=== PATIENT | male | born 1980 | race Caucasian/White ===

== ENCOUNTER 2023-04-20 12:34 | Emergency (ER) | payer SELFPAY ==
[~2023-04-20] VITALS: Ht 167 cm; Wt 70.3 kg
[~2023-04-20 12:34] MED LIST: CYCL10TA9 PO; HYDR-3816 PO; HYDR1TAB PO
[2023-04-20 12:58] LABS: BASOPHILS # (AUTO) 0.1 10^3/uL (0.0-0.1); BASOPHILS % (AUTO) 1 % (0-10); EOSINOPHILS % (AUTO) 1 % (0-10); HEMATOCRIT 44 % (40-54); LYMPHOCYTES # (AUTO) 2.7 10^3/uL (1.0-4.0); LYMPHOCYTES % (AUTO) 32 % (12-44); MEAN CORPUSCULAR HEMOGLOBIN 31 pg (25-34); MEAN CORPUSCULAR HGB CONC 37 g/dL (32-36); MEAN CORPUSCULAR VOLUME 86 fL (80-99); MONOCYTES # (AUTO) 0.8 10^3/uL (0.0-1.0); MONOCYTES % (AUTO) 9 % (0-12); NEUTROPHILS % (AUTO) 58 % (42-75); PLATELET COUNT 398 10^3/uL (130-400); WHITE BLOOD COUNT 8.7 10^3/uL (4.3-11.0)
[2023-04-20 13:05] LABS: ALBUMIN 4.6 GM/DL (3.2-4.5); CHLORIDE 104 MMOL/L (98-107); POTASSIUM 3.2 MMOL/L (3.6-5.0); SODIUM 139 MMOL/L (135-145)
[2023-04-20 13:07] LABS: CALCIUM 9.6 MG/DL (8.5-10.1)
[2023-04-20 13:08] LABS: GLUCOSE 106 MG/DL (70-105); TOTAL PROTEIN 7.9 GM/DL (6.4-8.2)
[2023-04-20 13:09] LABS: CARBON DIOXIDE 21 MMOL/L (21-32)
[2023-04-20 13:10] LABS: BILIRUBIN,TOTAL 1.5 MG/DL (0.1-1.0)
[2023-04-20 13:11] LABS: ALKALINE PHOSPHATASE 56 U/L (40-136); CREATININE SERUM 0.97 MG/DL (0.60-1.30); GFR ESTIMATED 101
[2023-04-20 13:12] LABS: BUN/CREATININE RATIO 11
[2023-04-20 13:14] LABS: ALANINE AMINOTRANSFERASE 12 U/L (0-55)
--- NOTE | 2023-04-20 13:14 | ED Neurological Problem ---
General Chief Complaint: Dizziness/Syncope Stated Complaint: DIZZINESS Nursing Triage Note: PT PRESENTS TO ED WITH COMPLAINTS OF DIZZINESS SINCE FRIDAY AFTER DRINKING COFFEE FROM [employer]. PT ALSO REPORTS NECK STIFFNESS THAT IS WORSE WHEN HE IS UP AND WALKING. PT STATES HE HAS SEEN [facility] TIMES FROM THIS PROBLEM AND TOLD HE HAD FLUIDS BEHIND HIS EARS FROM A RECENT COLD VIRUS. Source: patient Exam Limitations: no limitations History of Present Illness Date Seen by Provider: Apr 20, 2023 Time Seen by Provider: 12:47 Initial Comments 42-year-old male presents to the ER with complaints of lightheadedness since last April 14. He states that he feels like his head is buzzing and moving [id number]. He states that this started after drinking a strong coffee on Friday. States he does drink strong coffee everyday though. He has not drank any coffee since it started. He also complains of pressure on bilateral sides of his head, back of head, and neck which started with the dizziness. He reports that April 10 through April 13, he had a fever and felt like he had the flu. States that his significant other also had similar symptoms at that time. He states he had a negative COVID test. Denies current chest pain, shortness of air, abdominal pain, nausea, vomiting, diarrhea. He was seen by Jasmin Ordonez APRN and started on Augmentin 2 days ago for a possible dental abscess. He states that she thought he is just having res idual symptoms from a viral illness. He is worried that he had a stroke. Past medical history includes hypertension and anxiety. Blood pressure is elevated currently, he states is likely due to anxiety. He reports compliance with his medication. He provided a log of recent blood pressures, highest blood pressure noted was 133/103. Allergies and Home Medications Allergies Coded Allergies: Naproxen (Unverified Allergy, Mild, 04/16/09) Patient Home Medication List Home Medication List Reviewed: Yes Cyclobenzaprine Hcl (Cyclobenzaprine Hcl) 10 Mg Tablet, 1 EACH PO Q8H PRN for PAIN Prescribed by: YUMIKO PEÑA on 11/16/14 1042 Hydrocodone Bit/Acetaminophen (Hydrocodone-Apap 7.5/325 Tab) 1 Tab Tablet, 1 TAB PO Q6H PRN for PAIN Prescribed by: YUMIKO PEÑA on 11/16/14 1042 Review of Systems Review of Systems Constitutional: see HPI Past Uvhctle-Ewrwow-Dtgeij Hx Patient Social History Tobacco Use?: No Substance use?: Yes Substance type: Marijuana Substance frequency: Once in a while Pt feels they are or have been: No Past Medical History Surgery/Hospitalization HX: PMH: HTN, ANXIETY Asthma Hypertension Depression Physical Exam Vital Signs Vital Signs - First Documented 04/20/23 12:55 Temp 36.5 Pulse 119 Resp 20 B/P (MAP) 151/118 (129) Pulse Ox 98 Capillary Refill : Less Than 3 Seconds Height, Weight, BMI Height: 5'5" Weight: 165lbs. oz. 74.701286sc; 25.00 BMI Method:Stated General Appearance: WD/WN, no apparent distress HEENT: PERRL/EOMI, normal ENT inspection, TMs normal, pharynx normal Neck: supple, normal inspection Respiratory: lungs clear, normal breath sounds, no respiratory distress, no accessory muscle use Cardiovascular: tachycardia Extremities: normal range of motion, normal inspection Neurologic/Psychiatric: hotbed operator II-XII nml as tested, no motor/sensory deficits, alert, normal mood/affect, oriented x 3 Crainal Nerves: normal hearing, normal speech, PERRL Skin: normal color, warm/dry Progress/Results/Core Measures Results/Orders Lab Results Laboratory Tests Test 04/20/23 12:51 Range/Units White Blood Count 8.7 4.3-11.0 10^3/uL Red Blood Count 5.11 4.30-5.52 10^6/uL Hemoglobin 16.0 13.3-17.7 g/dL Hematocrit 44 40-54 % Mean Corpuscular Volume 86 80-99 fL Mean Corpuscular Hemoglobin 31 25-34 pg Mean Corpuscular Hemoglobin Concent 37 H 32-36 g/dL Red Cell Distribution Width 11.4 10.0-14.5 % Platelet Count 398 130-400 10^3/uL Mean Platelet Volume 10.0 9.0-12.2 fL Immature Granulocyte % (Auto) 0 % Neutrophils (%) (Auto) 58 42-75 % Lymphocytes (%) (Auto) 32 12-44 % Monocytes (%) (Auto) 9 0-12 % Eosinophils (%) (Auto) 1 0-10 % Basophils (%) (Auto) 1 0-10 % Neutrophils # (Auto) 5.0 1.8-7.8 10^3/uL Lymphocytes # (Auto) 2.7 1.0-4.0 10^3/uL Monocytes # (Auto) 0.8 0.0-1.0 10^3/uL Eosinophils # (Auto) 0.0 0.0-0.3 10^3/uL Basophils # (Auto) 0.1 0.0-0.1 10^3/uL Immature Granulocyte # (Auto) 0.0 0.0-0.1 10^3/uL Sodium Level 139 135-145 MMOL/L Potassium Level 3.2 L 3.6-5.0 MMOL/L Chloride Level 104 98-107 MMOL/L Carbon Dioxide Level 21 21-32 MMOL/L Anion Gap 14 5-14 MMOL/L Blood Urea Nitrogen 11 7-18 MG/DL Creatinine 0.97 0.60-1.30 MG/DL Estimat Glomerular Filtration Rate 101 BUN/Creatinine Ratio 11 Glucose Level 106 H 70-105 MG/DL Calcium Level 9.6 8.5-10.1 MG/DL Corrected Calcium 8.5-10.1 MG/DL Magnesium Level 2.0 1.6-2.4 MG/DL Total Bilirubin 1.5 H 0.1-1.0 MG/DL Aspartate Amino Transf (AST/SGOT) 13 5-34 U/L Alanine Aminotransferase (ALT/SGPT) 12 0-55 U/L Alkaline Phosphatase 56 40-136 U/L Total Protein 7.9 6.4-8.2 GM/DL Albumin 4.6 H 3.2-4.5 GM/DL My Orders Orders - LOS BUENROSTRO APRN Ekg Tracing (04/20/23 12:47) Cbc With Automated Diff (04/20/23 12:51) Magnesium (04/20/23 12:51) Comprehensive Metabolic Panel (04/20/23 12:51) Monitor-Rhythm Ecg Trace Only (04/20/23 12:51) Ed Iv/Invasive Line Start (04/20/23 12:51) Ns Iv 1000 Ml (Sodium Chloride 0.9%) (04/20/23 13:15) Ct Head Wo (04/20/23 13:05) Potassium Chloride (Tablet) (K Dur Table (04/20/23 13:30) Medications Given in ED Current Medications Medications Dose Ordered Sig/Sayra Route Start Time Stop Time Status Last Admin Dose Admin Potassium Chloride 40 meq ONCE ONCE PO 04/20/23 13:30 04/20/23 13:31 DC 04/20/23 13:29 40 MEQ Vital Signs/I&O 04/20/23 04/20/23 12:55 14:49 Temp 36.5 Pulse 119 79 Resp 20 16 B/P (MAP) 151/118 (129) 129/87 Pulse Ox 98 99 Blood Pressure Mean: 129 Progress Progress Note : Progress Note Patient seen and evaluated, resting in bed, no acute distress. Based on exam and symptoms, work-up initiated including CBC, CMP, magnesium, EKG, CT head. IV fluids ordered. 1432 Labs and imaging reviewed. CBC grossly normal. CMP shows decreased potassium 3.2, slightly elevated total bilirubin 1.5, slightly elevated albumin 4.6. Oral potassium ordered. CT shows no acute intracranial abnormality. Does show concerns for acute maxillary sinusitis. Symptoms are likely related to acute sinusitis. Patient is already on Augmentin for possible dental abscess, this will cover sinusitis. Results discussed with patient. Patient is relieved to find out that his CT did not reveal a previous stroke. Patient instructed to continue taking Augmentin and to follow-up with primary care provider. Patient's blood pressure has improved as well as his tachycardia after IV fluids. Discharge instructions and return precautions provided. Initial ECG Impression Date: Apr 20, 2023 Initial ECG Impression Time: 12:53 Initial ECG Rate: 108 Initial ECG Rhythm: S.Tach Initial ECG Intervals: Normal Initial ECG Impression: Nonspecific Changes Initial ECG Comparisson: No Previous ECG Available Diagnostic Imaging Diagonstic Imaging: CT Plain Films/CT/US/NM/MRI: head Comments [facility], [place] NAME: VIOLETA CARDENAS [employer] REC#: [id number] PT STATUS: REG ER : 1980 PHYSICIAN: LOS BUENROSTRO APRN ADMIT DATE: 04/20/23/ER Signed Date of Exam:04/20/23 CT HEAD WO PROCEDURE: CT head without contrast. TECHNIQUE: Multiple contiguous axial images were obtained through the brain without the use of intravenous contrast. Auto Exposure Controls were utilized during the CT exam to meet ALARA standards for radiation dose reduction. DATE: April 20, 2023. COMPARISON: CT head and cervical spine November 16, 2014. INDICATION: 42-year-old male, dizziness. FINDINGS: The ventricles and cerebral spinal fluid spaces are of normal size and configuration for the patient's age. There is no mass effect or midline shift. There is no acute intracranial hemorrhage. There is no abnormal extra-axial fluid collection. There is an air-fluid level in the left maxillary sinus. There is a polypoid lesion in the left maxillary sinus likely reflecting a mucous retention cyst. IMPRESSION: 1. No identified acute intracranial abnormality. 2. Findings concerning for acute left maxillary sinusitis. Dictated by: Dictated on workstation # [id number] Dict: 04/20/23 1322 Trans: 04/20/23 1335 [facility] [id number] Interpreted by: NORA LAUGHLIN MD Electronically signed by: NORA LAUGHLIN MD 04/20/23 1335 Departure Impression Primary Impression: Dizziness Additional Impression: Sinusitis Disposition: 01 HOME, SELF-CARE Condition: Stable Departure-Patient Inst. Decision time for Depature: 14:35 Referrals: ROLY THAPA DO (PCP/Family) Primary Care Physician Patient Instructions: Sinusitis, Adult (DC) Add. Discharge Instructions: Continue taking your Augmentin as prescribed. Complete full course of antibiotic, even if you begin to feel better. Continue using your Flonase and taking your allergy medication. Use a humidifier with distilled water at night next to your bed. Use your Cherry pot with distilled water to do sinus rinses. Follow-up with your primary care provider if symptoms are not improving after your antibiotic. Follow-up with your primary care provider regarding your elevated bilirubin level. Return for any new, concerning, or worsening symptoms. All discharge instructions reviewed with patient and/or family. Voiced understanding. LOS BUENROSTRO APRN Apr 20, 2023 13:14
[2023-04-20] MEDS ORDERED: NS IV 1000 ML 1,000 ML IV SCH (13:15)
--- NOTE | 2023-04-20 13:27 | Diagnostic Imaging Report ---
PROCEDURE: CT head without contrast. TECHNIQUE: Multiple contiguous axial images were obtained through the brain without the use of intravenous contrast. Auto Exposure Controls were utilized during the CT exam to meet ALARA standards for radiation dose reduction. DATE: April 20, 2023. COMPARISON: CT head and cervical spine November 16, 2014. INDICATION: 42-year-old male, dizziness. FINDINGS: The ventricles and cerebral spinal fluid spaces are of normal size and configuration for the patient's age. There is no mass effect or midline shift. There is no acute intracranial hemorrhage. There is no abnormal extra-axial fluid collection. There is an air-fluid level in the left maxillary sinus. There is a polypoid lesion in the left maxillary sinus likely reflecting a mucous retention cyst. IMPRESSION: 1. No identified acute intracranial abnormality. 2. Findings concerning for acute left maxillary sinusitis. Dictated by: Dictated on workstation # [id number]
[2023-04-20] MEDS ORDERED: KCL 20 MEQ TAB (K-DUR) PO ONE (13:30)
[2023-04-20 14:49] VITALS: BP 129/87
== END 2023-04-20 14:48 | disposition home or self-care (01) ==
LOC: EDUNIT# 12:34 → ER 12:36
DX: R42 Dizziness and giddiness (principal); J01.00 Acute maxillary sinusitis, unspecified; E87.6 Hypokalemia; R00.0 Tachycardia, unspecified; I10 Essential (primary) hypertension
CPT/HCPCS: 36415; 70450; 80053; 83735; 85025; 93005; 93041

== ENCOUNTER 2023-05-24 19:36 | Emergency (ER) | payer SELFPAY ==
[~2023-05-24] VITALS: Ht 165 cm; Wt 74.8 kg
[2023-05-24 19:57] LABS: BASOPHILS # (AUTO) 0.1 10^3/uL (0.0-0.1); BASOPHILS % (AUTO) 1 % (0-10); EOSINOPHILS # (AUTO) 0.1 10^3/uL (0.0-0.3); EOSINOPHILS % (AUTO) 1 % (0-10); HEMATOCRIT 44 % (40-54); HEMOGLOBIN 15.6 g/dL (13.3-17.7); LYMPHOCYTES # (AUTO) 4.1 10^3/uL (1.0-4.0); LYMPHOCYTES % (AUTO) 40 % (12-44); MEAN CORPUSCULAR HEMOGLOBIN 32 pg (25-34); MEAN CORPUSCULAR HGB CONC 36 g/dL (32-36); MEAN CORPUSCULAR VOLUME 89 fL (80-99); MEAN PLATELET VOLUME 9.7 fL (9.0-12.2); MONOCYTES % (AUTO) 10 % (0-12); NEUTROPHILS % (AUTO) 48 % (42-75); PLATELET COUNT 351 10^3/uL (130-400); WHITE BLOOD COUNT 10.3 10^3/uL (4.3-11.0)
--- NOTE | 2023-05-24 19:59 | ED General ---
General Chief Complaint: Dizziness/Syncope Stated Complaint: DIZZINESS Source of Information: Patient, Old Records History of Present Illness Date Seen by Provider: May 24, 2023 Time Seen by Provider: 19:41 Initial Comments PT ARRIVES VIA POV FROM HOME WITH FEMALE. ARRIVES CARRYING A VERY LARGE BACK PACK PT STATES HE HAS PRESSURE IN THE BACK OF HIS HEAD AND THE SIDES OF HIS HEAD AND HIS FOREHEAD STATES "I ALSO THINK I'M DIZZY" LATER STATES IT FEELS LIKE SOMETHING IS VIBRATING BACK AND FORTH INSIDE HIS HEAD. THESE SYMPTOMS HAVE BEEN ONGOING SINCE THE BEGINNING OF APRIL HE STATES "IT STARTED WITH FEVER ON APRIL 10" STATES A FEW DAYS LATER HE BEGAN TO HAVE THESE CURRENT SYMPTOMS, AFTER DRINKING STRONG COFFEE. HE WAS SEEN HERE APRIL 20 AND HAD A FULL WORK UP INCLUDING CT SCAN OF HEAD. HE WAS DX WITH SINUS INFECTION ( LEFT MAXILLARY SINUSITIS) AND WAS PRESCRIBED AN ANTIBIOTIC AND SYMPTOMS WENT AWAY A FEW DAYS LATER. SYMPTOMS ALL RETURNED 2 WEEKS AGO. HE STATES HE HAS BEEN TO [facility] "10 TIMES" FOR THIS PROBLEM--WALK IN CLINIC, INCLUDING THIS PAST FRIDAY--HE WAS STARTED ON AMOXIL + ZITHROMAX AND PREDNISONE. HE ALSO GOT A SHOT OF TORADOL WHEN HE WAS THERE EITHER ON FRIDAY OR FRIDAY. IT HELPED AND HIS SYMPTOMS WENT AWAY. THEN WOKE UP THE NEXT MORNING AND SYMPTOMS HAD RETURNED. HE WENT TO THE WALK IN CLINIC AT [facility] AGAIN YESTERDAY AND WAS DX WITH TENSION HEADACHE AND WAS PRESCRIBED FLEXERIL AND WAS TOLD TO TAKE EXCEDRIN. HE TOOK 2 FLEXERIL YESTERDAY AND HE FELT ALOT BETTER. HE HAS NOT TAKEN ANY TODAY PT STATES HE "FEELS WORSE" SINCE YESTERDAY. STATES "I FEEL PRESSURE IN MY HEAD AND MY BLOOD PRESSURE IS REALLY HIGH" STATES BP HIGH 148/106, BUT AVERAGES 130/95. HE CHECKS HIS BLOOD PRESSURE AT LEAST 10 TIMES A DAY HE TAKES LOSARTAN 100 MG DAILY PLUS HCTZ 12.5 MG--HE TOOK 25 MG HCTZ TODAY. HE TOOK 4 IBUPROFEN THIS MORNING AND 2 EXCEDRIN A COUPLE OF HOURS AGO AND IT HELPED THE PAIN IN HIS NECK HE HAS HAD NAUSEA, NO VOMITING STATES "MY VISION IS WORSE WITH THE PRESSURE" "MY EYES ARE INWARD AND HARD TO FOCUS" HE ALSO C/O MOUTH PAIN--STATES HAS A BAD TOOTH ON THE RIGHT FOR ABOUT A YEAR AND HE HAS NOT GOTTEN IT TAKEN CARE OF HE ALSO C/O ONGOING POSTERIOR NECK PAIN AND GETS SPOTS ON HIS LEGS WHEN THIS HAPPENS-HAPPENED ONCE BEFORE WHEN THIS FIRST STARTED, AND HAPPENED AGAIN TODAY--STATES "I JUST WOKE UP WITH THEM". THEY DO NOT ITCH OR HURT. FEMALE S.O. DOES NOT HAVE ANY SPOTS NO KNOWN TICK OR MOSQUITO. HE ALSO STATES "EVEN THE WIND BLOWING ACROSS MY SKIN FEELS DIFFERENT" HE STATES "I ALSO HAVE REALLY BAD ANXIETY" HE HAS BEEN PRESCRIBED HYDROXYZINE, BUT HAS ONLY TAKEN IT ONE TIME--A FEW DAYS AGO. STATES HE TOOK PSEUDOEPHEDRINE FOR A COUPLE OF DAYS THIS WEEK AND IT HELPED --HE FELT ALOT BETTER, AND HIS BLOOD PRESSURE WENT DOWN --WAS 120 SYSTOLIC AFTER HE TOOK IT. HE HAS NOT TAKEN ANY FOR A FEW DAYS. HE LATER ALSO STATES HE HAS BEEN PRESCRIBED MECLIZINE AND HE TOOK 1 PILL ONE TIME AND DIDN'T NOTICE ANY DIFFERENCE, SO HAS NOT TAKEN ANY MORE. HE SMOKES MARIJUANA ON A DAILY BASIS, HE STATES IT MAKES HIS SYMPTOMS WORSE AND HE HAS NOT USED IT IN A FEW DAYS HE STATES HE QUIT SMOKING REGULAR CIGARETTES A FEW YEARS AGO HE HAS A COUPLE OF BEERS ON THE WEEKENDS, NONE. TODAY HE WAS DRINKING CAFFEINE DAILY, BUT HAS NOT HAD ANY FOR A FEW DAYS. HIS LIST OF COMPLAINTS IS CONSTANTLY EXPANDING THROUGHOUT ER STAY PCP: JOSE. Allergies and Home Medications Allergies Coded Allergies: naproxen (Unverified Allergy, Mild, 04/16/09) lisinopril (Verified Allergy, Unknown, 05/24/23) Patient Home Medication List Home Medication List Reviewed: Yes Cyclobenzaprine Hcl (Cyclobenzaprine Hcl) 10 Mg Tablet, 1 EACH PO Q8H PRN for PAIN Prescribed by: YUMIKO PEÑA on 11/16/14 1042 Hydrocodone Bit/Acetaminophen (Hydrocodone-Apap 7.5/325 Tab) 1 Tab Tablet, 1 TAB PO Q6H PRN for PAIN Prescribed by: YUMIKO PEÑA on 11/16/14 1042 Ondansetron (Ondansetron Odt) 4 Mg Tab.rapdis, 4 MG PO Q4H Prescribed by: YIMI BOWMAN on 05/24/232038 Review of Systems Review of Systems Constitutional: see HPI EENTM: see HPI Respiratory: no symptoms reported Cardiovascular: no symptoms reported Gastrointestinal: see HPI Genitourinary: no symptoms reported Musculoskeletal: see HPI Skin: no symptoms reported Psychiatric/Neurological: See HPI Hematologic/Lymphatic: No Symptoms Reported Immunological/Allergic: no symptoms reported Past Yboenba-Srkrxi-Uvwhho Hx Patient Social History Tobacco Use?: Yes Tobacco type used: Cigarettes Smoking Status: Former Smoker Substance use?: Yes Substance type: Marijuana Substance frequency: Daily Alcohol Use?: Yes Alcohol Frequency: Several times a month Pt feels they are or have been: No Past Medical History Surgery/Hospitalization HX: PMH: HTN, ANXIETY Surgeries: Yes (DENTAL PROCEDURE) Respiratory: Yes Asthma Cardiac: Yes Hypertension Neurological: No Genitourinary: No Gastrointestinal: No Musculoskeletal: No Endocrine: No HEENT: No Cancer: No Psychosocial: Yes Anxiety, Depression Integumentary: No Blood Disorders: No Family Medical History SOCIAL HISTORY: -SMOKED 1 PPD, QUIT SEVERAL YEARS AGO -ETOH --"COUPLE OF DRINKS ON THE WEEKENDS" -DRUGS-SMOKES MARIJUANA DAILY Physical Exam Vital Signs Vital Signs - First Documented 05/24/23 05/24/23 19:43 21:12 Temp 36.7 Pulse 115 Resp 18 B/P (MAP) 162/109 (126) Pulse Ox 99 O2 Delivery Room Air Capillary Refill : Height, Weight, BMI Height: 5'5" Weight: 165lbs. oz. 74.763132yg; 25.00 BMI Method:Stated General Appearance: No Apparent Distress, WD/WN, Anxious, Other (PT WALKS QUICKLY/UPRIGHT AND MOVES QUICKLY WITHOUT ANY DIFFICULTY. HE DOES NOT APPEAR TO BE IN ANY DISTRESS. HE IS VERY ANXIOUS) HEENT: PERRL/EOMI, TMs Normal, Normal ENT Inspection, Pharynx Normal, Other (POOR DENTITION WITH MULTIPLE MISSING TEETH . NO OBVIOUS DENTAL ABSCESS OR SPECIFIC TOOTH THAT IS PAINFUL. ) Neck: Full Range of Motion, Normal Inspection, Non Tender, Supple Respiratory: Normal Breath Sounds, No Accessory Muscle Use, No Respiratory Distress Cardiovascular: Regular Rate, Rhythm, No Edema, No JVD, No Murmur, Normal Peripheral Pulses Gastrointestinal: Normal Bowel Sounds, No Organomegaly, No Pulsatile Mass, Non Tender, Soft Back: Normal Inspection, No CVA Tenderness, No Vertebral Tenderness Extremity: Normal Capillary Refill, Normal Inspection, Normal Range of Motion, Non Tender, No Calf Tenderness, No Pedal Edema Neurologic/Psychiatric: Alert, Oriented x3, No Motor/Sensory Deficits, campus aide II- XII Norm as Tested; No Abnormal Cerebellar Tests Skin: Normal Color, Warm/Dry; No Rash; Other (PT HAS ONE TINY SPOT ON LEFT THIGH AND RIGHT LOWER LEG THAT HAVE THE APPEARANCE OF VERY TINY/MINOR INGROWN HAIRS--THIS IS WHAT PT IS REFERRING TO "SPOTS" ) Progress/Results/Core Measures Suspected Sepsis SIRS Temperature: Pulse: Respiratory Rate: Laboratory Tests 05/24/23 19:47: White Blood Count 10.3 Blood Pressure / Mean: Laboratory Tests 05/24/23 19:47: Creatinine 1.17, Platelet Count 351, Total Bilirubin 1.4H Results/Orders Lab Results Laboratory Tests Test 05/24/23 19:47 05/24/23 20:30 Range/Units White Blood Count 10.3 4.3-11.0 10^3/uL Red Blood Count 4.93 4.30-5.52 10^6/uL Hemoglobin 15.6 13.3-17.7 g/dL Hematocrit 44 40-54 % Mean Corpuscular Volume 89 80-99 fL Mean Corpuscular Hemoglobin 32 25-34 pg Mean Corpuscular Hemoglobin Concent 36 32-36 g/dL Red Cell Distribution Width 11.9 10.0-14.5 % Platelet Count 351 130-400 10^3/uL Mean Platelet Volume 9.7 9.0-12.2 fL Immature Granulocyte % (Auto) 0 % Neutrophils (%) (Auto) 48 42-75 % Lymphocytes (%) (Auto) 40 12-44 % Monocytes (%) (Auto) 10 0-12 % Eosinophils (%) (Auto) 1 0-10 % Basophils (%) (Auto) 1 0-10 % Neutrophils # (Auto) 5.0 1.8-7.8 10^3/uL Lymphocytes # (Auto) 4.1 H 1.0-4.0 10^3/uL Monocytes # (Auto) 1.0 0.0-1.0 10^3/uL Eosinophils # (Auto) 0.1 0.0-0.3 10^3/uL Basophils # (Auto) 0.1 0.0-0.1 10^3/uL Immature Granulocyte # (Auto) 0.0 0.0-0.1 10^3/uL Erythrocyte Sedimentation Rate 5 0-15 MM/HR Sodium Level 138 135-145 MMOL/L Potassium Level 3.3 L 3.6-5.0 MMOL/L Chloride Level 104 98-107 MMOL/L Carbon Dioxide Level 21 21-32 MMOL/L Anion Gap 13 5-14 MMOL/L Blood Urea Nitrogen 14 7-18 MG/DL Creatinine 1.17 0.60-1.30 MG/DL Estimat Glomerular Filtration Rate 80 BUN/Creatinine Ratio 12 Glucose Level 101 70-105 MG/DL Calcium Level 9.7 8.5-10.1 MG/DL Corrected Calcium 8.5-10.1 MG/DL Magnesium Level 2.0 1.6-2.4 MG/DL Total Bilirubin 1.4 H 0.1-1.0 MG/DL Aspartate Amino Transf (AST/SGOT) 15 5-34 U/L Alanine Aminotransferase (ALT/SGPT) 15 0-55 U/L Alkaline Phosphatase 53 40-136 U/L C-Reactive Protein High Sensitivity 0.06 0.00-0.50 MG/DL Total Protein 8.0 6.4-8.2 GM/DL Albumin 4.7 H 3.2-4.5 GM/DL TSH Mobile Testing 5.43 H 0.35-4.94 UIU/ML Serum Alcohol < 10 <10 MG/DL Urine Color YELLOW Urine Clarity CLEAR Urine pH 5.0 5-9 Urine Specific Fifield 1.015 L 1.016-1.022 Urine Protein NEGATIVE NEGATIVE Urine Glucose (UA) NEGATIVE NEGATIVE Urine Ketones NEGATIVE NEGATIVE Urine Nitrite NEGATIVE NEGATIVE Urine Bilirubin NEGATIVE NEGATIVE Urine Urobilinogen 0.2 < = 1.0 MG/DL Urine Leukocyte Esterase NEGATIVE NEGATIVE Urine RBC (Auto) TRACE H NEGATIVE Urine RBC RARE /HPF Urine WBC NONE /HPF Urine Crystals NONE /LPF Urine Bacteria TRACE /HPF Urine Casts PRESENT /LPF Urine Hyaline Casts 0-2 H /LPF Urine Mucus SMALL H /LPF Urine Culture Indicated NO Urine Opiates Screen NEGATIVE NEGATIVE Urine Oxycodone Screen NEGATIVE NEGATIVE Urine Methadone Screen NEGATIVE NEGATIVE Urine Propoxyphene Screen NEGATIVE NEGATIVE Urine Barbiturates Screen NEGATIVE NEGATIVE Ur Tricyclic Antidepressants Screen NEGATIVE NEGATIVE Urine Phencyclidine Screen NEGATIVE NEGATIVE Urine Amphetamines Screen NEGATIVE NEGATIVE Urine Methamphetamines Screen NEGATIVE NEGATIVE Urine Benzodiazepines Screen NEGATIVE NEGATIVE Urine Cocaine Screen NEGATIVE NEGATIVE Urine Cannabinoids Screen POSITIVE H NEGATIVE My Orders Orders - YIMI BOWMAN DO Alcohol (05/24/23 19:49) Cbc With Automated Diff (05/24/23 19:49) Comprehensive Metabolic Panel (05/24/23 19:49) Drug Screen Stat (Urine) (05/24/23 19:49) Magnesium (05/24/23 19:49) Thyroid Analyzer (05/24/23 19:49) Ua Culture If Indicated (05/24/23 19:49) Ketorolac Injection (Ketorolac Injection (05/24/23 20:00) Orphenadrine Inj (Ed Only) (Norflex Inje (05/24/23 20:00) Diphenhydramine Injection (Diphenhydram (05/24/23 20:00) Hs C Reactive Protein (05/24/23 19:59) Tick Panel With Lyme Eia (05/24/23 19:59) Erythrocyte Sedimentation Rate (05/24/23 19:59) Free T4 (Free Thyroxine) (05/24/23 19:47) Medications Given in ED Current Medications Medications Dose Ordered Sig/Sayra Route Start Time Stop Time Status Last Admin Dose Admin Diphenhydramine HCl 50 mg ONCE ONCE IVP 05/24/23 20:00 05/24/23 20:01 DC 05/24/23 20:08 50 MG Ketorolac Tromethamine 30 mg ONCE ONCE IVP 05/24/23 20:00 05/24/23 20:01 DC 05/24/23 20:08 30 MG Orphenadrine Citrate 60 mg ONCE ONCE IV 05/24/23 20:00 05/24/23 20:01 DC 05/24/23 20:08 60 MG Vital Signs/I&O 05/24/23 05/24/23 19:43 21:12 Temp 36.7 36.7 Pulse 115 86 Resp 18 16 B/P (MAP) 162/109 (126) 127/95 Pulse Ox 99 99 O2 Delivery Room Air Capillary Refill : Progress Note : Progress Note VITALS ON ARRIVAL: TEMP 36.7=98.0 HR 115, RR 18, BP 162/109, O2 SAT 99% ON ROOM AIR. GIVEN: -BENADRYL -TORADOL -NORFLEX PT STATES "IT'S ALREADY WORKING--THAT FEELS SO GOOD" LITERALLY SOON MEDS ARE STARTING TO BE GIVEN--BEFORE MEDS ARE EVEN COMPLETELY GIVEN VITALS STABLE. BP DOWN TO 140'S/90'S, AND HR DOWN TO 90'S AT DISMISSAL SYMPTOMS IMPROVED AT DISMISSAL UNEVENTFUL ER STAY REVIEWED PRIOR RECORDS--ER VISITS, TESTS/PROCEDURES DISCUSSED TEST RESULTS, ANTICIPATED COURSE, SYMPTOMATIC TREATMENT, MEDICATIONS, NEED FOR FOLLOW UP AND RETURN PRECAUTIONS Departure Impression Primary Impression: Headache Additional Impressions: Anxiety HTN (hypertension) Disposition: 01 HOME, SELF-CARE Condition: Improved Departure-Patient Inst. Referrals: ROLY THAPA DO (PCP/Family) Primary Care Physician Patient Instructions: Headache, Adult ED, Anxiety, Adult ED, DASH Diet, High Blood Pressure ED Add. Discharge Instructions: TAKE YOUR LOSARTAN AND HYDROCHLOROTHIAZIDE PRESCRIBED. AVOID CHECKING YOUR BLOOD PRESSURE AT HOME FINISH YOUR CURRENT ANTIBIOTICS PRESCRIBED. TAKE THE FLEXERIL EVERY DAY--UP TO 3 TIMES A DAY--DO NOT DRIVE IF YOU ARE TAKING THIS TAKE EXCEDRIN 1-2 PILLS UP TO 4 TIMES A DAY NEEDED FOR HEADACHE. THIS HAS CAFFEINE IN IT. AVOID TAKING IN ADDITIONAL CAFFEINE TAKE IBUPROFEN UP TO 800 MG 4 TIMES A DAY NEEDED FOR HEADACHE. TAKE THE HYDROXYZINE FOR ANXIETY EVERY 6 HOURS. YOU MAY TAKE MECLIZINE 50 MG 4 TIMES A DAY NEEDED FOR DIZZINESS YOU MAY TAKE ZOFRAN NEEDED FOR NAUSEA NO MARIJUANA AVOID ALCOHOL IT MAY INTERFERE WITH SOME OF YOUR MEDICATIONS. FOLLOW UP WITH DR. THAPA AT [facility] NEXT WEEK FOR FURTHER CARE All discharge instructions reviewed with patient and/or family. Voiced understanding. Scripts Ondansetron (Ondansetron Odt) 4 Mg Tab.rapdis 4 MG PO Q4H for Nausea/Vomiting, #10 TAB Prov: YIMI BOWMAN DO 05/24/23 YIMI BOWMAN DO May 24, 2023 19:59
[2023-05-24] MEDS ORDERED: ORPHENADRINE 60 MG/2 ML (NORFLEX) AMP (ED ONLY) IV ONE (20:00)
[2023-05-24] MEDS ORDERED: KETOROLAC INJ 30 MG/ML VIAL IVP ONE (20:00)
[2023-05-24] MEDS ORDERED: diphenhydrAMINE INJ 50 MG/ML VIAL IVP ONE (20:00)
[2023-05-24 20:08] LABS: ALBUMIN 4.7 GM/DL (3.2-4.5); CHLORIDE 104 MMOL/L (98-107); POTASSIUM 3.3 MMOL/L (3.6-5.0); SODIUM 138 MMOL/L (135-145)
[2023-05-24 20:09] LABS: CALCIUM 9.7 MG/DL (8.5-10.1)
[2023-05-24 20:11] LABS: GLUCOSE 101 MG/DL (70-105)
[2023-05-24 20:12] LABS: BILIRUBIN,TOTAL 1.4 MG/DL (0.1-1.0); CARBON DIOXIDE 21 MMOL/L (21-32)
[2023-05-24 20:14] LABS: ALKALINE PHOSPHATASE 53 U/L (40-136); CREATININE SERUM 1.17 MG/DL (0.60-1.30); GFR ESTIMATED 80
[2023-05-24 20:15] LABS: BUN/CREATININE RATIO 12
[2023-05-24 20:17] LABS: ALANINE AMINOTRANSFERASE 15 U/L (0-55)
[2023-05-24 20:37] LABS: TSH (THYROID ANALYZER) 5.43 UIU/ML (0.35-4.94)
[2023-05-24] MEDS ORDERED: ONDA4TAB11 PO (20:39)
[2023-05-24 20:49] LABS: BACTERIA,URINE TRACE /HPF; BILIRUBIN,URINE NEGATIVE (NEGATIVE); CLARITY,URINE CLEAR; COLOR,URINE YELLOW; GLUCOSE, URINE (UA) NEGATIVE (NEGATIVE); HYALINE CASTS, URINE 0-2 /LPF; KETONES,URINE NEGATIVE (NEGATIVE); LEUKOCYTE ESTERASE ,URINE NEGATIVE (NEGATIVE); NITRITE,URINE NEGATIVE (NEGATIVE); PROTEIN,URINE NEGATIVE (NEGATIVE); RBC,URINE RARE /HPF
[2023-05-24 20:52] LABS: AMPHETAMINE SCREEN, URINE NEGATIVE (NEGATIVE); BARBITURATE SCREEN URINE NEGATIVE (NEGATIVE); BENZODIAZEPINES SCREEN URINE NEGATIVE (NEGATIVE); CANNABINOID SCREEN, URINE POSITIVE (NEGATIVE); COCAINE SCREEN URINE NEGATIVE (NEGATIVE); METHADONE STAT NEGATIVE (NEGATIVE); OPIATE SCREEN URINE NEGATIVE (NEGATIVE); OXYCODONE STAT NEGATIVE (NEGATIVE); PROPOXYPHENE STAT NEGATIVE (NEGATIVE); TRICYCLIC ANTIDEPRESSANTS SCRE NEGATIVE (NEGATIVE)
[2023-05-24 21:12] VITALS: BP 127/95
[2023-05-24 21:36] LABS: FREE T4 (FREE THYROXINE) 1.33 NG/DL (0.70-1.48)
== END 2023-05-24 21:13 | disposition home or self-care (01) ==
LOC: EDUNIT# 19:36 → ER 19:38
DX: I10 Essential (primary) hypertension (principal); F41.9 Anxiety disorder, unspecified; Z79.899 Other long term (current) drug therapy; Z87.891 Personal history of nicotine dependence
CPT/HCPCS: 80053; 80306; 81000; 83735; 84439; 84443; 85025; 85652; 86141; 86618; 86666 ×2; 86668; 86757 ×2; 99284; G0480; 36415; 80320

== ENCOUNTER 2023-05-26 15:28 | Emergency (ER) | payer SELFPAY ==
[~2023-05-26 15:28] MED LIST changes: +ONDA4TAB11 PO
--- NOTE | 2023-05-26 15:50 | ED Headache ---
General Chief Complaint: Head/Cervical Problems Stated Complaint: DIZZY- HEADACHE Nursing Triage Note: PT TO RM 8 BY EMS WITH CC OF HEAD "PRESSURE", DIZZINESS AND NAUSEA. PT STATES WAS SEEN AT [facility] AND SENT TO ED. PT REPORTS "PASSINGOUT" WHEN [facility] STAFF ATTEMPTED IV PLACEMENT. 18# IV PLACED [employer]IN[employer] SL[employer]. Source: patient Exam Limitations: no limitations History of Present Illness Date Seen by Provider: May 26, 2023 Time Seen by Provider: 15:46 Initial Comments Patient is a 42-year-old male who was brought to the ED by EMS from [facility] for head pressure, fullness, dizziness, blurry vision, ear ringing. Patient states symptoms started in early April. Patient states he was diagnosed with a sinus infection was given antibiotics improvement. Started developing similar symptoms 2 weeks ago. Pain is behind both eyes. Reports some right- sided ear ringing. He reports pain that radiates to the back. He has had some neck pain but currently on Flexeril with some improvement. States he does feel dizzy but denies the room is spinning. He did call Dr. Russell as he been having right upper dental discomfort but was not able to get seen. He was seen at [facility] today attempting to get a referral to ENT however he states that his symptoms appear to be worsened. States he was seen here 2 days ago with similar symptoms with reassuring lab work. Was found to be hypotensive at the clinic. Was given Toradol and Phenergan for migraine cocktail concern for migraine with improvement of the headache that he had. Patient states they attempted a IV at the clinic and had a syncopal episode. On arrival alert and orient x4. Patient states he was seen at [facility] last week was given azithromycin and amoxicillin without much improvement of his symptoms. Patient does note a taste in his mouth with his tooth infection. Denies of any unilateral muscle weakness or sensory changes. Denies chest pain, cough, shortness of breath, Chandrakant pain, vomiting or diarrhea. Allergies and Home Medications Allergies Coded Allergies: naproxen (Unverified Allergy, Mild, 04/16/09) lisinopril (Verified Allergy, Unknown, 05/24/23) Patient Home Medication List Home Medication List Reviewed: Yes Cyclobenzaprine Hcl (Cyclobenzaprine Hcl) 10 Mg Tablet, 1 EACH PO Q8H PRN for PAIN Prescribed by: YUMIKO PEÑA on 11/16/14 1042 Hydrocodone Bit/Acetaminophen (Hydrocodone-Apap 7.5/325 Tab) 1 Tab Tablet, 1 TAB PO Q6H PRN for PAIN Prescribed by: YUMIKO PEÑA on 11/16/14 1042 Ondansetron (Ondansetron Odt) 4 Mg Tab.rapdis, 4 MG PO Q4H Prescribed by: YIMI BOWMAN on 05/24/232038 Review of Systems Review of Systems Constitutional: No chills, No diaphoresis Eyes: Denies Blindness; Blurred Vision Ears, Nose, Mouth, Throat: denies ear pain, denies ear discharge Respiratory: No cough Gastrointestinal: No abdominal pain, No diarrhea, No nausea, No vomiting Genitourinary: No decreased output, No discharge Musculoskeletal: No back pain, No joint pain Skin: No change in color, No change in hair/nails All Other Systems Reviewed Negative Unless Noted: Yes Past Fswqrjy-Kcmtiv-Gyvana Hx Patient Social History Tobacco Use?: No Substance use?: Yes Substance type: Marijuana Substance frequency: Once in a while Alcohol Use?: No Pt feels they are or have been: No Past Medical History Surgery/Hospitalization HX: PMH: HTN, ANXIETY Surgeries: Yes (DENTAL PROCEDURE) Respiratory: Yes Asthma Cardiac: Yes Hypertension Neurological: No Genitourinary: No Gastrointestinal: No Musculoskeletal: No Endocrine: No HEENT: No Cancer: No Psychosocial: Yes Anxiety, Depression Integumentary: No Blood Disorders: No Family Medical History SOCIAL HISTORY: -SMOKED 1 PPD, QUIT SEVERAL YEARS AGO -[facility]OH --"COUPLE OF DRINKS ON THE WEEKENDS" -DRUGS-SMOKES MARIJUANA DAILY Physical Exam Vital Signs Vital Signs - First Documented 05/26/23 15:30 Temp 36.2 Pulse 89 Resp 12 B/P (MAP) 93/67 (76) Pulse Ox 100 O2 Delivery Room Air Capillary Refill : Less Than 3 Seconds Height, Weight, BMI Height: 5'5" Weight: 165lbs. oz. 74.470318nr; 27.00 BMI Method:Stated General Appearance: WD/WN, no apparent distress HEENT: PERRL/EOMI, normal ENT inspection, TMs normal, pharynx normal Neck: non-tender, full range of motion, supple Cardiovascular: regular rate, rhythm, no edema, no gallop, no JVD Respiratory: chest non-tender, lungs clear, normal breath sounds, no respiratory distress, no accessory muscle use Gastrointestinal: normal bowel sounds, non tender, soft, no organomegaly Back: normal inspection, no CVA tenderness Extremities: normal range of motion, non-tender, normal inspection, no pedal edema, no calf tenderness Crainal Nerves: normal hearing, normal speech, PERRL Coordination/Gait: normal finger to nose, normal gait Motor/Sensory: no motor deficit, no sensory deficit, no pronator drift Skin: normal color, warm/dry Progress/Results/Core Measures Results/Orders Lab Results Laboratory Tests Test 05/26/23 15:46 Range/Units White Blood Count 8.4 4.3-11.0 10^3/uL Red Blood Count 4.81 4.30-5.52 10^6/uL Hemoglobin 15.2 13.3-17.7 g/dL Hematocrit 44 40-54 % Mean Corpuscular Volume 91 80-99 fL Mean Corpuscular Hemoglobin 32 25-34 pg Mean Corpuscular Hemoglobin Concent 35 32-36 g/dL Red Cell Distribution Width 11.9 10.0-14.5 % Platelet Count 324 130-400 10^3/uL Mean Platelet Volume 9.6 9.0-12.2 fL Immature Granulocyte % (Auto) 1 % Neutrophils (%) (Auto) 57 42-75 % Lymphocytes (%) (Auto) 31 12-44 % Monocytes (%) (Auto) 11 0-12 % Eosinophils (%) (Auto) 1 0-10 % Basophils (%) (Auto) 1 0-10 % Neutrophils # (Auto) 4.8 1.8-7.8 10^3/uL Lymphocytes # (Auto) 2.6 1.0-4.0 10^3/uL Monocytes # (Auto) 0.9 0.0-1.0 10^3/uL Eosinophils # (Auto) 0.0 0.0-0.3 10^3/uL Basophils # (Auto) 0.1 0.0-0.1 10^3/uL Immature Granulocyte # (Auto) 0.0 0.0-0.1 10^3/uL Prothrombin Time 12.8 12.2-14.7 SEC INR Comment 0.9 0.8-1.4 Activated Partial Thromboplast Time 24 24-35 SEC Sodium Level 134 L 135-145 MMOL/L Potassium Level 3.7 3.6-5.0 MMOL/L Chloride Level 103 98-107 MMOL/L Carbon Dioxide Level 18 L 21-32 MMOL/L Anion Gap 13 5-14 MMOL/L Blood Urea Nitrogen 13 7-18 MG/DL Creatinine 1.14 0.60-1.30 MG/DL Estimat Glomerular Filtration Rate 83 BUN/Creatinine Ratio 11 Glucose Level 99 70-105 MG/DL Calcium Level 9.5 8.5-10.1 MG/DL Corrected Calcium 9.1 8.5-10.1 MG/DL Magnesium Level 1.9 1.6-2.4 MG/DL Total Bilirubin 1.9 H 0.1-1.0 MG/DL Aspartate Amino Transf (AST/SGOT) 14 5-34 U/L Alanine Aminotransferase (ALT/SGPT) 13 0-55 U/L Alkaline Phosphatase 51 40-136 U/L Total Protein 7.8 6.4-8.2 GM/DL Albumin 4.5 3.2-4.5 GM/DL My Orders Orders - MEGHANN HINES Cbc With Automated Diff (05/26/23 15:42) Comprehensive Metabolic Panel (05/26/23 15:42) Ct Head Wo (05/26/23 15:42) Magnesium (05/26/23 15:42) Partial Thromboplastin Time (05/26/23 15:42) Protime With Inr (05/26/23 15:42) Vital Signs/I&O 05/26/23 05/26/23 15:30 17:03 Temp 36.2 Pulse 89 90 Resp 12 12 B/P (MAP) 93/67 (76) 153/100 Pulse Ox 100 98 O2 Delivery Room Air Room Air Blood Pressure Mean: 76 Departure Communication (PCP) Reviewed previous visits, lab testing, imaging. Patient presents to ED with head fullness, pressure behind bilateral eyes, right ear ringing, right upper dental pain. No known cardiac history. Patient Was recently seen 2 days ago as well as in April for similar symptoms. Patient Was seen at the clinic today and sent to the ED for syncope. This occurred while starting a IV. Likely vasovagal. Had a EKG performed which was unremarkable at [facility]. There was concern for hypotension started on a liter of fluid. On arrival slightly hypotensive but did improve after liter of fluid. Patient without any focal neural deficits. Patient does have some mild pain in his right upper molar but no obvious gum swelling or redness. No facial swelling or erythema. Bilateral TMs clear. Patient was diagnosed with a sinus infection in April treated with antibiotics with improvement. No maxillary or frontal sinus tenderness suggesting sinusitis at this time. Bilateral TMs clear without erythema, swelling, exudate. Do not necessarily believe patient needs oral antibiotics at this time. Patient has been on multiple rounds of antibiotics since April. No TMJ tenderness or clicking. CT scan of the head was ordered as well as generalized lab work. CT scan of the head was negative for acute abnormality. Generalized lab work unremarkable. Vital signs remained stable. Denied of any specific head pain at this time. Did receive Toradol, liter fluid and Phenergan at [facility] prior to arrival with improvement of the pressure. Patient Was treated for a migraine and was discharged with Imitrex. Patient attempted to contact Dr. Russell today but was not able to get seen for this dental pain. I do recommend following up with a dentist as patient pain could be related to his tooth. Other potential etiologies with would be Mnire's disease with the dizziness and ear ringing. He does not appear to have any feeling of the room spinning. No evidence of nystagmus. I do think ENT outpatient follow-up for the ear ringing. Patient does not appear toxic or septic. No meningeal signs. Currently on Flexeril for neck pain. Due to reassuring lab work, patient will be discharged. He did have a negative tick panel performed 2 days ago. There is no evidence of rash. He does not appear toxic. Return precaution were discussed with patient. Follow-up with dentist. Provided ENT outpatient follow-up. Take your Imitrex if developed migraine. Impression Primary Impression: Headache Disposition: 01 HOME, SELF-CARE Condition: Stable Departure-Patient Inst. Decision time for Depature: 16:48 Referrals: CARLEE HEARN MD, CASEY V DO (PCP/Family) Primary Care Physician Patient Instructions: Headache, Adult ED Add. Discharge Instructions: Recommend follow-up with Dr. Hearn and Dentist for further evaluation. Continue with your migraine medication All discharge instructions reviewed with patient and/or family. Voiced understanding. MEGHANN HINES May 26, 2023 15:49
[2023-05-26 15:53] LABS: BASOPHILS # (AUTO) 0.1 10^3/uL (0.0-0.1); BASOPHILS % (AUTO) 1 % (0-10); EOSINOPHILS % (AUTO) 1 % (0-10); HEMATOCRIT 44 % (40-54); HEMOGLOBIN 15.2 g/dL (13.3-17.7); LYMPHOCYTES # (AUTO) 2.6 10^3/uL (1.0-4.0); LYMPHOCYTES % (AUTO) 31 % (12-44); MEAN CORPUSCULAR HEMOGLOBIN 32 pg (25-34); MEAN CORPUSCULAR HGB CONC 35 g/dL (32-36); MEAN CORPUSCULAR VOLUME 91 fL (80-99); MEAN PLATELET VOLUME 9.6 fL (9.0-12.2); MONOCYTES # (AUTO) 0.9 10^3/uL (0.0-1.0); MONOCYTES % (AUTO) 11 % (0-12); NEUTROPHILS # (AUTO) 4.8 10^3/uL (1.8-7.8); NEUTROPHILS % (AUTO) 57 % (42-75); PLATELET COUNT 324 10^3/uL (130-400); WHITE BLOOD COUNT 8.4 10^3/uL (4.3-11.0)
[2023-05-26 16:08] LABS: ALBUMIN 4.5 GM/DL (3.2-4.5); POTASSIUM 3.7 MMOL/L (3.6-5.0)
[2023-05-26 16:09] LABS: INR 0.9 (0.8-1.4); PROTHROMBIN TIME PATIENT 12.8 SEC (12.2-14.7)
[2023-05-26 16:10] LABS: CALCIUM 9.5 MG/DL (8.5-10.1)
[2023-05-26 16:11] LABS: TOTAL PROTEIN 7.8 GM/DL (6.4-8.2)
[2023-05-26 16:13] LABS: BILIRUBIN,TOTAL 1.9 MG/DL (0.1-1.0)
[2023-05-26 16:14] LABS: CREATININE SERUM 1.14 MG/DL (0.60-1.30)
--- NOTE | 2023-05-26 16:16 | Diagnostic Imaging Report ---
PROCEDURE: CT head without contrast. TECHNIQUE: Multiple contiguous axial images were obtained through the brain without the use of intravenous contrast. Auto Exposure Controls were utilized during the CT exam to meet ALARA standards for radiation dose reduction. INDICATION: Headache. Comparison is made with prior exam of 04/20/2023. FINDINGS: The ventricles and sulci are within normal limits. There is no hydrocephalus or cerebral edema. There is no midline shift or mass effect. There is no intracranial mass, hemorrhage, or extra-axial fluid collection. The visualized paranasal sinuses and mastoid air cells are clear. There are no regional areas of decreased attenuation appreciated to suggest an acute CVA. IMPRESSION: No acute intracranial abnormality. Dictated by: Dictated on workstation # [id number]
[2023-05-26 16:18] LABS: MAGNESIUM 1.9 MG/DL (1.6-2.4)
[2023-05-26 17:03] VITALS: BP 153/100
== END 2023-05-26 17:03 | disposition home or self-care (01) ==
LOC: EDUNIT# 15:28 → ER 15:29
DX: R51.9 Headache, unspecified (principal); M54.2 Cervicalgia; Z87.891 Personal history of nicotine dependence; Z79.899 Other long term (current) drug therapy
CPT/HCPCS: 36415; 70450; 80053; 83735; 85025; 85610; 85730